=== PATIENT | male | born 1945 | race Caucasian/White ===

== ENCOUNTER 2018-05-02 07:58 | Emergency (ER) | payer OTHER, MEDICARE ==
--- NOTE | 2018-05-02 08:05 | EDPHY ---
H & P Time Seen by Provider: 05/02/18 08:05 HPI/ROS: CHIEF COMPLAINT: Atrial flutter HISTORY OF PRESENT ILLNESS: Patient is had 3 previous episodes of atrial flutter the 1st 1 in 2008, the 2nd in August of 2013, the 3rd in 2015. He was cardioverted in all 3 instances. He is not currently anticoagulated. He last ate or drank anything at 7:00 p.m. Last night. He was awake at 1:30 a.m. Because he does have some insomnia, and at 1:30 a.m. He started feeling his heart "jump around" identical to previous episodes of atrial flutter. Not associated with chest pain or shortness of breath or lightheadedness or dizziness or syncope. Symptoms mild. Persistent until now. REVIEW OF SYSTEMS: Eye: no change in vision ENT: no sore throat Cardiac: HPI Pulmonary: no cough or SOB Abdomen: no vomiting, diarrhea, abdominal pain Musculoskeletal: no back pain Skin: no rash Neuro: no headache Constitutional: no fever : no urinary symptoms No previous problems with tolerating anticoagulation A comprehensive 10 point review of systems is otherwise negative aside from elements mentioned in the history of present illness. 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 Eyes: No scleral icterus. ENT, Mouth: Normal mucous membranes. Respiratory: Normal respiratory effort, breath sounds equal, lungs are clear to auscultation. Cardiovascular: Irregular rate and rhythm. Gastrointestinal: Abdomen is soft and non tender. Neurological: Alert, face symmetric, normal motor and sensory in extremities. Skin: Warm and dry, no rashes. Musculoskeletal: No peripheral edema. Psychiatric: Not agitated. Emergency Department course/MDM: EKG shows atrial flutter with rate is controlled. [facility] is contacted for consultation. Does not have acute ischemic symptoms. 905: patient was personally seen by Dr. Nevarez in ED; he recommends Eliquis and discharge with elective cardioversion next Friday. Anticoagulation discussed with patient by Geri and consented, Rx by me. Smoking Status: Never smoked Constitutional: Initial Vital Signs Temperature (C) 36.4 C 05/02/18 08:00 Heart Rate 104 H 05/02/18 08:00 Respiratory Rate 18 05/02/18 08:00 Blood Pressure 126/87 H 05/02/18 08:00 O2 Sat (%) 95 05/02/18 08:00 O2 Delivery Mode Room Air Allergies/Adverse Reactions: No Known Allergies Allergy (Verified 05/02/18 07:59) Home Medications: Medication Instructions Recorded Apixaban [Eliquis] 5 mg PO BID #14 tab 05/02/18 Medical Decision Making - Diagnostics EKG Interpretation: 12-lead EKG interpreted by me; official reading is in computer system. My interpretation is atrial flutter rate 78 with PVC and left axis. Differential Diagnosis: Differential for palpitations considered including but not limited to atrial flutter, atrial fibrillation, PVCs, other dysrhythmia Consult/Admit Bed Type: Discussed with Geri chenm - Data Points Laboratory Results: Laboratory Results 05/02/18 08:15 05/02/18 08:15 05/02/18 05/02/18 08:15 08:15 WBC 6.50 10^3/uL 10^3/uL (3.80-9.50) RBC 5.07 10^6/uL 10^6/uL (4.40-6.38) Hgb 16.0 g/dL g/dL (13.7-17.5) Hct 48.2 % % (40.0-51.0) MCV 95.1 fL fL (81.5-99.8) MCH 31.6 pg pg (27.9-34.1) MCHC 33.2 g/dL g/dL (32.4-36.7) RDW 13.1 % % (11.5-15.2) Plt Count 158 10^3/uL 10^3/uL (150-400) MPV 13.1 fL H fL (8.7-11.7) Neut % (Auto) 78.6 % H % (39.3-74.2) Lymph % (Auto) 11.4 % L % (15.0-45.0) Alcorn % (Auto) 8.6 % % (4.5-13.0) Eos % (Auto) 0.6 % % (0.6-7.6) Baso % (Auto) 0.5 % % (0.3-1.7) Nucleat RBC Rel Count 0.0 % % (0.0-0.2) Absolute Neuts (auto) 5.11 10^3/uL 10^3/uL (1.70-6.50) Absolute Lymphs (auto) 0.74 10^3/uL L 10^3/uL (1.00-3.00) Absolute Monos (auto) 0.56 10^3/uL 10^3/uL (0.30-0.80) Absolute Eos (auto) 0.04 10^3/uL 10^3/uL (0.03-0.40) Absolute Basos (auto) 0.03 10^3/uL 10^3/uL (0.02-0.10) Absolute Nucleated RBC 0.00 10^3/uL 10^3/uL (0-0.01) Immature Gran % 0.3 % % (0.0-1.1) Immature Gran # 0.02 10^3/uL 10^3/uL (0.00-0.10) Sodium 143 mEq/L mEq/L (135-145) Potassium 4.1 mEq/L mEq/L (3.3-5.0) Chloride 109 mEq/L mEq/L (97-110) Carbon Dioxide 27 mEq/l mEq/l (22-31) Anion Gap 7 mEq/L mEq/L (6-14) BUN 21 mg/dL mg/dL (7-23) Creatinine 1.0 mg/dL mg/dL (0.7-1.3) Estimated GFR > 60 Glucose 133 mg/dL H mg/dL (70-100) Calcium 9.0 mg/dL mg/dL (8.5-10.4) Troponin I < 0.012 ng/mL ng/mL (0.000-0.034) Departure - Departure Disposition: Home, Routine, Self-Care Clinical Impression: Atrial flutter Qualifiers: Atrial flutter type: unspecified Qualified Code(s): I48.92 - Unspecified atrial flutter Condition: Good Instructions: Apixaban (By mouth), Atrial Flutter (ED) Additional Instructions: Dr. Nevarez will call you today to discuss details of DONIS cardioversion on Friday. Referrals: Jamel Gonzalez MD [Primary Care Provider] - As per Instructions Jersey Nevarez MD [Medical Doctor] - As per Instructions Prescriptions: Apixaban [Eliquis] 5 mg PO BID #14 tab
--- NOTE | 2018-05-02 08:23 | CPEKG ---
Test Reason : OPEN Blood Pressure : / mmHG Vent. Rate : 078 BPM Atrial Rate : 224 BPM P-R Int : 197 ms QRS Dur : 104 ms QT Int : 468 ms P-R-T Axes : 238 -78 028 degrees QTc Int : 534 ms Atrial flutter with predominant 3:1 AV block Ventricular premature complex Left axis deviation Prolonged QT interval Confirmed by Cecilio Garcia ([id number]) on 05/02/2018 8:22:46 AM Referred By: Confirmed By:Cecilio Garcia
[2018-05-02 08:42] LABS: PLATELET COUNT 158 10^3/uL (150-400)
[2018-05-02 09:17] VITALS: BP 118/76
--- NOTE | 2018-05-02 10:03 | PDCONSULT ---
Radio Interference Expert Note: I was asked to see Dr. Judson Torres in the emergency department by Dr. Cecilio Garcia. Patient is known to me from prior outpatient clinic visit. He has a history of recurrent atrial flutter. Early this morning he was awake and noticed that his heart rate was irregular. He came to the emergency department and was noted to be in atrial flutter with a controlled ventricular response. He denies any chest discomfort, shortness of breath at rest, dizziness or syncope. Except for palpitations, he feels that he is at baseline. 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 He is mildly symptomatic. He is hemodynamically stable. I have given him prescription for Eliquis 5 mg twice daily to be started this morning. Chads Vasc score is 2, given recurrent atrial flutter, he should continue Eliquis long-term. We plan on performing DONIS guided cardioversion Friday at 8:00 a.m.. If he feels worse in the interim, he will call me, I am on-call. This is his 5th episode of atrial flutter, we will again discuss radiofrequency ablation procedure with him if he wants to proceed. This was a complex discussion with the patient due to need for review of records , discussion of pathophysiology of disease and discussion regarding multiple treatment modalities. I spent 35 minutes with the patient, more than 50% of which was spent in counseling.
== END 2018-05-02 09:16 | disposition home or self-care (01) ==
DX: I48.92 Unspecified atrial flutter (principal); C61 Malignant neoplasm of prostate

== ENCOUNTER 2018-05-04 06:57 | Day surgery (SDC) | payer OTHER, MEDICARE ==
[2018-05-04] MEDS ORDERED: MIDAZOLAM 2 MG/2 ML VIAL IVP ONE (07:03)
[2018-05-04] MEDS ORDERED: NS 500 ML IV ONE (07:03)
[2018-05-04] MEDS ORDERED: ATROPINE SULFATE 1 MG/10 ML SYR IVP ONE (07:03)
[2018-05-04] MEDS ORDERED: fentaNYL 100 MCG/2 ML INJ IVP ONE (07:03)
[2018-05-04] MEDS ORDERED: BENZOCAINE UNIT DOSE SPRAY HURRICAINE MM ONE (07:03)
[2018-05-04 07:48] LABS: INR 1.14 (0.83-1.16); PROTIME(PATIENT) 14.8 SEC (12.0-15.0)
--- NOTE | 2018-05-04 07:59 | PDGENHP ---
History & Physical Chief Complaint: afl History of Present Illness: palp Relevant Physical Exam: s1s2 irreg cta ao3 Cardiorespiratory Assessment: afl for olaf cv
[2018-05-04] MEDS ORDERED: PROPOFOL 200 MG/20 ML VIAL ONE (08:03)
--- NOTE | 2018-05-04 08:15 | PDTEE1 ---
DONIS Cardioversion Procedure Procedure: electrical cardioversion, transesophageal echo Indications: other (atrial flutter) Consent: signed and in chart Anticoagulation: eliquis Procedural Details: Pads were placed in anterior-posterior position. DONIS probe was advanced and standard images obtained. There is no evidence of left atrial or left atrial appendage thrombus. Synchronized cardioversion attempt #1: 100J Results: normal sinus rhythm Conclusions: successful DONIS cardioversion Patient Problems: Problems Problem Status Onset Atrial flutter Acute
--- NOTE | 2018-05-04 08:30 | PDANEPAE ---
ANE History of Present Illness a flutter ANE Past Medical History - Cardiovascular History Hx Hypertension: No Hx Arrhythmias: Yes Hx Chest Pain: No Hx Coronary Artery / Peripheral Vascular Disease: No Hx CHF / Valvular Disease: No Hx Palpitations: No - Pulmonary History Hx COPD: No Hx Asthma/Reactive Airway Disease: No Hx Recent Upper Respiratory Infection: No Hx Oxygen in Use at Home: No Hx Sleep Apnea: No - Endocrine History Hx Diabetes: No ANE Review of Systems Review of systems is: negative Review of Systems: - Exercise capacity Exercise capacity: >=4 METS ANE Patient History - Allergies Allergies/Adverse Reactions: No Known Allergies Allergy (Verified 05/02/18 07:59) - Home Medications Home medications: home medication list seen and reviewed - Anes Hx Anes Hx: no prior problems - Smoking Hx Smoking Status: Never smoked ANE Labs/Vital Signs - Labs Result Diagrams: 05/04/18 07:20 ANE Physical Exam - Airway Neck exam: FROM Mallampati Score: Class 1 Mouth exam: normal dental/mouth exam - Pulmonary Pulmonary: no respiratory distress - Cardiovascular Cardiovascular: irregularly irregular - ASA Status ASA Status: II ANE Anesthesia Plan Anesthesia Plan: GA with mask Urgent/Emergent Case: Carlos bernal completed preop but documented later for safe timely pt care
--- NOTE | 2018-05-04 08:30 | POSTANESTH ---
Post Anesthetic Evaluation Cardiovascular Status: Normal, Stable Respiratory Status: Normal, Stable Level of Consciousness/Mental Status: Can Participate in Eval, Alert and Oriented Pain Control: Adequate, Prn Tx Ordered Nausea/Vomiting Control: Adequate, Prn Tx Ordered Complications Possibly Related to Anesthesia: None Noted
--- NOTE | 2018-05-04 16:39 | CPEKG ---
Test Reason : OPEN Blood Pressure : / mmHG Vent. Rate : 107 BPM Atrial Rate : 116 BPM P-R Int : 000 ms QRS Dur : 107 ms QT Int : 317 ms P-R-T Axes : 000 043 -04 degrees QTc Int : 423 ms Atrial flutter Ventricular premature complex Inferior infarct, recent Lateral leads are also involved Confirmed by Gaston Burk ([id number]) on 05/04/2018 4:39:07 PM Referred By: Confirmed By:Gaston Burk
--- NOTE | 2018-05-04 16:40 | CPEKG ---
Test Reason : OPEN Blood Pressure : / mmHG Vent. Rate : 064 BPM Atrial Rate : 061 BPM P-R Int : 150 ms QRS Dur : 107 ms QT Int : 401 ms P-R-T Axes : 071 015 057 degrees QTc Int : 414 ms Sinus rhythm Low voltage, extremity leads Confirmed by Gaston Burk ([id number]) on 05/04/2018 4:40:18 PM Referred By: Confirmed By:Gaston Burk
== END 2018-05-04 09:45 | disposition home or self-care (01) ==
LOC: FCATH 06:57
PROVIDERS: ATTEND Internal Medicine Cardiovascular Disease
DX: I48.92 Unspecified atrial flutter (principal); Z79.01 Long term (current) use of anticoagulants
CPT/HCPCS: J2704

== ENCOUNTER 2018-08-14 15:14 | Day surgery (SDC) | payer OTHER, MEDICARE ==
[2018-08-14] MEDS ORDERED: fentaNYL 100 MCG/2 ML INJ IVP ONE (15:16)
[2018-08-14] MEDS ORDERED: ATROPINE SULFATE 1 MG/10 ML SYR IVP ONE (15:16)
[2018-08-14] MEDS ORDERED: BENZOCAINE UNIT DOSE SPRAY HURRICAINE MM ONE (15:16)
[2018-08-14] MEDS ORDERED: MIDAZOLAM 2 MG/2 ML VIAL IVP ONE (15:16)
[2018-08-14] MEDS ORDERED: NS 500 ML IV ONE (15:16)
[2018-08-14 16:14] LABS: INR 1.14 (0.83-1.16); PROTIME(PATIENT) 14.1 SEC (12.0-15.0)
[2018-08-14] MEDS ORDERED: LIDOCAINE 1% 5 ML SDV ONE (16:36)
[2018-08-14] MEDS ORDERED: PROPOFOL 200 MG/20 ML VIAL ONE ×2 (16:36→16:37)
--- NOTE | 2018-08-14 16:36 | PDANEPAE ---
ANE History of Present Illness A-flutter ANE Past Medical History - Cardiovascular History Hx Hypertension: No Hx Arrhythmias: Yes Hx Chest Pain: No Hx Coronary Artery / Peripheral Vascular Disease: No Hx CHF / Valvular Disease: No Hx Palpitations: No - Pulmonary History Hx COPD: No Hx Asthma/Reactive Airway Disease: No Hx Recent Upper Respiratory Infection: No Hx Oxygen in Use at Home: No Hx Sleep Apnea: No - Endocrine History Hx Diabetes: No ANE Review of Systems Review of Systems: ANE Patient History - Allergies Allergies/Adverse Reactions: No Known Allergies Allergy (Verified 05/02/18 07:59) - Anes Hx Anes Hx: no prior problems - Smoking Hx Smoking Status: Never smoked ANE Labs/Vital Signs - Labs Result Diagrams: 08/14/18 15:45 - Vital Signs Height: 175 cm Weight: 70.3 kg ANE Physical Exam - Airway Neck exam: FROM Mallampati Score: Class 2 Mouth exam: normal dental/mouth exam - Pulmonary Pulmonary: no respiratory distress - Cardiovascular Cardiovascular: regular rate and rhythym - ASA Status ASA Status: II ANE Anesthesia Plan Anesthesia Plan: MAC (vs brief IV GA)
--- NOTE | 2018-08-14 17:02 | POSTANESTH ---
Post Anesthetic Evaluation Cardiovascular Status: Similar to Pre-Op Cond Respiratory Status: Similar to Pre-op Cond. Level of Consciousness/Mental Status: Alert and Oriented Pain Control: Adequate, Prn Tx Ordered Nausea/Vomiting Control: Adequate, Prn Tx Ordered Complications Possibly Related to Anesthesia: None Noted
--- NOTE | 2018-08-14 17:22 | EPPROC ---
Electrophysiology Procedure Note: Date: 08/14/18 Nurse Prn: Mike Hutchins MD Procedures: DONIS 35203 Cardioversion 30689 Indications: 73yo M with typical atrial flutter, recurrent since most recent cardioversion 05/2018. Has been off eliquis until this AM, when he experienced symptomatic recurrence. Techniques: Following informed consent, Dr Torres was brought to the EP lab in a fasting nonsedated state, in AFL rhythm. IV sedation was provided by the anesthesiology service. Pre-procedure DONIS demonstrated the absence of VINCENZO thrombus and adequate exit velocities; see separate report. Defibrillation pads were applied in an AP orientation to the chest. After ensuring adequate sedation , a single 200J biphasic synchronized transcutaneous shock was delivered, resulting in termination of AFL rhythm; there was a 3 second sinus pause, followed by sinus bradycardia rhythm (50s). The patient tolerated the procedure well. EBL: none Complications: none Plan: -eliquis 5mg bid for 1 month post cardioversion -discussed CTI ablation for definitive control of AFL Patient Problems: Problems Problem Status Onset Atrial flutter Acute
--- NOTE | 2018-08-14 18:26 | CPEKG ---
Test Reason : OPEN Blood Pressure : / mmHG Vent. Rate : 101 BPM Atrial Rate : 211 BPM P-R Int : 103 ms QRS Dur : 098 ms QT Int : 366 ms P-R-T Axes : 246 -53 025 degrees QTc Int : 475 ms Atrial flutter Left axis deviation Minimal ST depression, inferior leads Borderline prolonged QT interval Confirmed by Frandy Pond ([id number]) on 08/14/2018 6:25:52 PM Referred By: Abraham Hutchins Confirmed By:Frandy Pond
--- NOTE | 2018-08-14 18:27 | CPEKG ---
Test Reason : OPEN Blood Pressure : / mmHG Vent. Rate : 064 BPM Atrial Rate : 065 BPM P-R Int : 232 ms QRS Dur : 107 ms QT Int : 425 ms P-R-T Axes : 049 -10 032 degrees QTc Int : 439 ms Sinus rhythm Atrial premature complexes Prolonged SD interval Minimal ST elevation, anterior leads Confirmed by Frandy Pond ([id number]) on 08/14/2018 6:27:24 PM Referred By: Abraham Hutchins Confirmed By:Frandy Pond
== END 2018-08-14 18:00 | disposition home or self-care (01) ==
LOC: FCATH 15:14
PROVIDERS: ATTEND Internal Medicine Cardiovascular Disease
DX: I48.3 Typical atrial flutter (principal); Z85.46 Personal history of malignant neoplasm of prostate
CPT/HCPCS: J2704

== ENCOUNTER 2018-09-22 11:01 | Observation (INO) | payer OTHER, MEDICARE ==
[2018-09-22] MEDS ORDERED: NS 1,000 ML IV ONE (11:02)
[2018-09-22] MEDS ORDERED: PROPOFOL 200 MG/20 ML VIAL ONE (11:08)
[2018-09-22] MEDS ORDERED: ROCURONIUM 100 MG/10 ML VIAL ONE (11:08)
[2018-09-22] MEDS ORDERED: DEXAMETHASONE 4 MG/ML VIAL ONE (11:08)
[2018-09-22] MEDS ORDERED: ONDANSETRON 4 MG/2 ML VIAL ONE (11:08)
[2018-09-22] MEDS ORDERED: PHENYLEPHRINE HCL 100 MCG/ML SYR ONE ×3 (11:17→14:39)
[2018-09-22] MEDS ORDERED: LIDOCAINE 1% 300 MG/30 ML SDV ONE (11:54)
[2018-09-22 11:55] LABS: PLATELET COUNT 142 10^3/uL (150-400)
[2018-09-22] MEDS ORDERED: HEPARIN 10,000 UNIT/10 ML MDV (1,000 UNIT/ML) ONE (11:55)
[2018-09-22] MEDS ORDERED: ISOPROTERENOL HCL/D5W 0.2 MG/50 ML BAG IV ONE ×2 (11:55→14:36)
[2018-09-22] MEDS ORDERED: BUPIVACAINE 0.75% 10 ML SDV ONE (11:55)
[2018-09-22 12:00] LABS: INR 1.01 (0.83-1.16); PROTIME(PATIENT) 12.9 SEC (12.0-15.0)
--- NOTE | 2018-09-22 12:05 | PDGENHP ---
History & Physical Chief Complaint: Atrial flutter History of Present Illness: Persistent symptomatic atrial flutter. History of VINCENZO thrombus. On Eliquis, held x24hrs pre-procedure. Most recent cardioversion . Relevant Physical Exam: A&Ox4, no apparent distress, regular rate and rhythm, tachycardic (atrial flutter), S1, S2, pulses 2+ bilaterally, no edema Cardiorespiratory Assessment: Proceed with DONIS and atrial flutter ablation as planned for today
--- NOTE | 2018-09-22 12:51 | PDANEPAE ---
ANE Past Medical History - Cardiovascular History Hx Hypertension: No Hx Arrhythmias: Yes Hx Chest Pain: No Hx Coronary Artery / Peripheral Vascular Disease: No Hx CHF / Valvular Disease: No Hx Palpitations: No - Pulmonary History Hx COPD: No Hx Asthma/Reactive Airway Disease: No Hx Recent Upper Respiratory Infection: No Hx Oxygen in Use at Home: No Hx Sleep Apnea: No - Endocrine History Hx Diabetes: No - Renal History Hx Renal Disorders: No - Liver History Hx Hepatic Disorders: No - Neurological & Psychiatric Hx Hx Neurological and Psychiatric Disorders: No - Cancer History Hx Cancer: Yes Cancer History Comment: Prostate CA in remission - GI History GERD: no Hx Gastrointestinal Disorders: No ANE Review of Systems Review of Systems: ANE Patient History - Allergies Allergies/Adverse Reactions: No Known Allergies Allergy (Verified 05/02/18 07:59) - Smoking Hx Smoking Status: Never smoked ANE Labs/Vital Signs - Labs Result Diagrams: 09/22/18 11:15 09/22/18 11:15 - Vital Signs Height: 175.26 cm Weight: 70.307 kg ANE Physical Exam - Airway Neck exam: FROM Mallampati Score: Class 1 Mouth exam: normal dental/mouth exam - Pulmonary Pulmonary: no respiratory distress, no rales or rhonchi, clear to auscultation - Cardiovascular Cardiovascular: no murmur, rub, or gallop, irregularly irregular - ASA Status ASA Status: II ANE Anesthesia Plan Anesthesia Plan: general endotracheal anesthesia Total IV Anesthesia: No
--- NOTE | 2018-09-22 12:52 | POSTANESTH ---
Post Anesthetic Evaluation Cardiovascular Status: Normal, Stable Respiratory Status: Normal, Stable Level of Consciousness/Mental Status: Can Participate in Eval Pain Control: Adequate, Prn Tx Ordered Nausea/Vomiting Control: Adequate, Prn Tx Ordered Complications Possibly Related to Anesthesia: None Noted
[2018-09-22] MEDS ORDERED: PROPOFOL/EMULSION 500 MG/50 ML BOTTLE IV ONE (13:48)
[2018-09-22] MEDS ORDERED: LIDOCAINE 2% 2 ML INJ ONE (13:48)
[2018-09-22] MEDS ORDERED: fentaNYL 100 MCG/2 ML INJ ONE (14:08)
[2018-09-22] MEDS ORDERED: ROCURONIUM 50 MG/5 ML VIAL ONE (14:18)
[2018-09-22] MEDS ORDERED: ePHEDrine SULFATE 25 MG/5 ML SYR ONE (14:39)
[2018-09-22] MEDS ORDERED: SUGAMMADEX SODIUM 200 MG/2 ML VIAL IVP ONE ×2 (15:18→15:21)
[2018-09-22] MEDS ORDERED: ACETAMINOPHEN 325 MG TAB PO PRN (15:48)
--- NOTE | 2018-09-22 15:51 | EPPROC ---
Electrophysiology Procedure Note: ELECTROPHYSIOLOGIC STUDY AND CATHETER MEDIATED ABLATION FOR SUBEUSTACHIAN ISTHMUS DEPENDENT COUNTERCLOCKWISE ATRIAL FLUTTER: INDICATION: Recurrent atrial flutter PROCEDURES PERFORMED: 18060-28 EP evaluation with RA/RV/LA pace/record, with arrhythmia induction 11312-42 EP evaluation with RA/RV pace record, insert/reposition catheter, with arrhythmia induction 41218 SVT ablation 14239 3D mapping Fluoroscopy Catheters & Anesthesia: The patient arrived in the Electrophysiology Laboratory in the fasting state. The right clavicular region, right groin, and left groin area were prepped and draped in the usual sterile manner. Anesthesiologist administered general anesthesia. Appropriate non-invasive blood pressure, pulse oximetry and end- tidal CO2 monitoring was established. All catheters were placed percutaneously using the modified Seldinger technique , and advanced into position under fluoroscopic guidance. One #7 Divehi deflectable octapolar electrode catheter was advanced to the His-bundle position via the left femoral vein and then into the coronary sinus. One # 7 Divehi Halo catheter was inserted through the left femoral vein and was placed at the tricuspid annulus. Heparin was administered to keep ACT > 200 seconds. Programmed stimulation was performed from the right atrium, coronary sinus ( left atrium) and right ventricle. On arrival to the Electrophysiology Laboratory the patient was in atrial flutter , CL 280 ms . Entrainment mapping from lateral TA, septal TA, proximal CS and distal CS confirmed cavotricuspid isthmus dependent atrial flutter. In preparation for ablation of typical atrial flutter, a high-resolution 3D (3 dimensional) Carto electroanatomical map of the sub-Eustachian isthmus and right atrium was obtained during pacing of the posterolateral coronary sinus. For ablation of typical atrial flutter, one Mobi sheath was placed in the right atrium. A #8 Divehi deflectable quadrapolar electrode catheter (2mm-5mm-2mm spacing) with 3.5 mm STSF irrigated tip electrode and location sensor for the [employer] mapping system was inserted in the long sheath and advanced to the right atrium. Radiofrequency applications were applied between the tricuspid annulus at 0630 oclock as seen in the MIRIAN view and the inferior vena cava. This achieved conduction block across the isthmus. Post ablation, a high-resolution electroanatomical map of the sub-Eustachian isthmus was obtained during pacing of the posterolateral coronary sinus. This confirmed conduction block across the sub-Eustachian isthmus. Bidirectional block was also confirmed by pacing. Atrial programmed stimulation post ablation (isoproterenol 4 mcg/min) induced 2 atrial tachycardias: 1. AT#1, CL 430-45- ms. This was a high septal devonte AT, sustained but not enough 3D mapping data could be obtained to perform ablation. 2. AT#2, CL 360 ms, nonsustained, 1 episode. Early activation was in proximal CS AT vs atypical AVNRT. The catheters were removed. Sheaths were removed in EP Lab post subQ purse string sutures. The patient was transferred to the cardiovascular holding area in stable condition. Vascular access sheaths were removed in the holding area. There were no apparent complications. CONCLUSIONS: 1. Cavotricuspid isthmus dependent counterclockwise atrial flutter. 2. Successful catheter mediated ablation of cavotricuspid isthmus achieving bi -directional conduction block across cavotricuspid isthmus. 3. 2 separate AT induced, not targeted for ablation. 4. No apparent complications. Patient Problems: Problems Problem Status Onset Atrial flutter Acute
[2018-09-22] MEDS: APIXABAN 5 MG TAB PO SCH (20:00)
[2018-09-23 04:53] LABS: PLATELET COUNT 130 10^3/uL (150-400)
[2018-09-23 07:49] VITALS: BP 114/71
[2018-09-23] MEDS: APIXABAN 5 MG TAB PO SCH (09:09)
--- NOTE | 2018-09-23 11:27 | GDS ---
[f rep st] DISCHARGE SUMMARY SUPERVISING ATG JAVA DEVELOPER: Jersey Nevarez MD ADMISSION DIAGNOSIS: Atrial flutter. DISCHARGE DIAGNOSES: 1. Atrial flutter, status post successful ablation of the cavotricuspid isthmus. 2. Two separate inducible atrial tachycardias, not targeted for ablation. PROCEDURES PERFORMED DURING HOSPITALIZATION: 1. Electrocardiogram. 2. Electrophysiology study. 3. Atrial flutter ablation. 4. Echocardiogram. HOSPITAL COURSE: Patient presented 09/22/2018, for an atrial flutter ablation in the setting of recurrent, symptomatic episodes of atrial flutter requiring several recent cardioversions. He underwent successful catheter-mediated ablation of the cavotricuspid isthmus achieving bidirectional conduction block across the CTI. He also had 2 separate inducible atrial tachycardias, which were not targeted for ablation. He did very well and had no intraprocedure complications. He has been stable overnight and he is appropriate and stable for discharge home today. PHYSICAL EXAMINATION: GENERAL: Alert and oriented x4 in no apparent distress. VITAL SIGNS: Blood pressure 111/41, heart rate 62, respiratory rate 16, SpO2 97% on room air, temp 36.4 degrees Celsius. RESPIRATORY: Lungs are clear to auscultation without adventitious breath sounds. CARDIAC: Regular rate and rhythm, S1, S2. Rhythm is regular. ABDOMEN: Normoactive bowel sounds times all 4 quadrants. No masses or tenderness. Soft to palpation. SKIN: [place], warm, dry without cyanosis or clubbing. No peripheral edema. EXTREMITIES: Bilateral pursestring sutures are removed intact without evidence of hematoma, redness, oozing, swelling, or warmth. Pulses are 2+ bilaterally. No edema. LABORATORY STUDIES: Drawn today. CBC and BMP are stable compared to preprocedure. Troponin is 0.509, please note the elevated troponin is to be expected in the postprocedure setting. PROCEDURES: Electrophysiology study and atrial flutter ablation as mentioned above. Preliminary review of echocardiogram this morning demonstrates stable left ventricular systolic function without new wall motion abnormalities or evidence of pericardial effusion. There was mild MR, AI, and TR. Electrocardiogram this morning demonstrates sinus bradycardia with a normal MN interval and without new ST or T-wave abnormalities. DISCHARGE DISPOSITION: Patient will be discharged home in stable condition. He is under activity restrictions as below. DISCHARGE MEDICATIONS: Please see discharge medication reconciliation sheet for full details. Please note, the patient has been restarted on his Eliquis 6 hours post procedure and he will continue this for at least the next 6 weeks. DISCHARGE INSTRUCTIONS: Post atrial flutter ablation instructions reviewed with the patient in detail. 1. We discussed activity restrictions, including lifting no more than 10 pounds and avoidance of submerged bathing for 10 days. 2. He will get up and walk around every 45 minutes for 45 days. 3. We reviewed bleeding precautions, medication compliance, monitoring for signs and symptoms of infection, and monitoring for sustained arrhythmia. At the time of discharge, the patient verbalizes understanding regarding all discharge instructions without questions or concerns. He has a followup visit scheduled in 4 weeks, and he will contact [facility] with any new or concerning symptoms prior to his upcoming visit. Time spent on discharge greater than 30 minutes. /[id number]/MODL MTDD
--- NOTE | 2018-09-23 14:29 | ASDISCHSUM ---
Discharge Information Plan Status:Home with No Needs Medically Cleared to Leave:09/23/2018 Discharge Date:09/23/2018 11:22 AM CM D/C Disposition:Home, Routine, Self-Care ADT D/C Disposition:Home, Routine, Self-Care Projected Discharge Date:09/23/2018 11:22 AM Transportation at D/C: Discharge Delay Reason: Follow-Up Date:09/23/2018 11:22 AM Discharge Slot: Final Diagnosis: Placement Information Patient Contact Information Contact Name:JUSTYN Relationship:Friend Address: City:[place] Alternate Phone: [facility]/Zip Code:[place] [address] Email: Financial Information Financial Class:Medicare Primary Plan Desc:MEDICARE OUTPATIENT Primary Plan Number:[id number] Secondary Plan Desc:ROBB/FARIDA SUPPLEMENT Secondary Plan Number:[id number] Assessment Information LACE LACE Length of stay for Answers: Less than 1 day current admission Acuity / Level of Answers: No Care: Did the patient have an inpatient admission? Comorbidities - select Answers: Other Notes: Jean/Sanju all that apply # of Emergency department Answers: 1-2 visits in the last 6 months Score: 2 Date Signed: 09/23/2018 02:28 PM Electronically Signed By:Madeline Choe RN Intervention Information
--- NOTE | 2018-09-23 14:40 | ECHO ---
[email or web address] [address] [address] Main: [phone] Echocardiography Examination Transthoracic Name: TRUMAN DOWELL MR#: [id number] Study Date: 09/23/2018 Study Time: 07:57 AM Date of : 1945 Age: 73 year(s) Height: 175.3 cm (69 in.) Weight: 70.31 kg (155 lb.) BSA: 1.85 m2 Gender: Male Examination: Echo Contrast: Image Quality: Adequate Rhythm: Heart Rate: BP: 114 mmHg/71 mmHg Indication: F/U Post EP Study Procedure Staff Referring Physician: Supervisor Files: Roya Anderson [facility] Reading Physician: Nitza Jin MD Requesting Provider: Ordering Physician: Luann Villalba Indication: F/U Post EP Study Measurements Chambers AV/MV Label Value Normal Value Label Value Normal Value LVOTd 2.2 cm (1.9cm - 2.1cm) AR PHT 0.61 s LVOT VTI 20.8 cm (18cm - 22cm) AR PHT 608 ms LVDd, 2D 4.9 cm (4.2cm - 5.9cm) AR Vmax 3.75 m/s LVDs, 2D 3.1 cm (2.1cm - 4cm) AV PGmax 4 mmHg IVSd, 2D 1.1 cm (0.6cm - 1.1cm) AV PGmean 2 mmHg LVPWd, 2D 0.9 cm (0.6cm - 1cm) AV Vmax 0.98 m/s LVEF, BP 61 % (55% - 70%) ROBIN (VTI) 3.3 cm2 LVEF, 2D 65 % (54% - 74%) MV E Vmax 0.63 m/s LVOT PGmean 2 mmHg MV A Vmax 0.43 m/s LVOT Vmean 0.58 m/s MV E/A 1.47 LA Volume, BP 67 ml (18ml - 58ml) MV E/E' lateral 6 LADs, 2D 3.5 cm (3cm - 4cm) MV E/E' septal 7.1 (0.45 - 1.25) LAESV index, BP 36.2 ml/m2 MV DT 162 ms RA Area 25.5 cm2 MV E' septal 0.09 m/s Additional Vessels MV PHT 0.05 s Label Value Normal Value MVA PHT 4.7 cm2 AoAsc 3.5 cm MV E' lateral 0.1 m/s AoRoot, 2D 3.3 cm (1.4cm - 2.6cm) MV E/E' mean 6.63 IVC 1.7 cm (1.2cm - 2.3cm) MV PHT 47 ms Patient: TRUMAN DOWELL Study Date: 09/23/2018 Page 1 of 3 07:57 AM MV E' mean 0.1 m/s TV/PV Label Value Normal Value RA Pressure 5 mmHg RVSP 34 mmHg TR Pmax 29 mmHg TR Vmax 2.67 m/s PV PGmax 6 mmHg PV Vmax, Caliper 1.25 m/s (0.6m/s - 0.9m/s) Findings 1. The left ventricle is normal in size. Normal LV systolic function with an ejection fraction of 61%. No regional wall motion abnormalities. Normal diastolic function.2. The right ventricle is upper limits of normal in size with normal systolic function.3. Mild left atrial dilation and moderate right atrial dilation4. Mild mitral regurgitation.5. Mild aortic regurgitation.6. Mild tricuspid regurgitation with normal estimated PA systolic pressure. compared with 08/14/2018 DONIS mild mitral regurgitation now noted, previously trivial.. Left Ventricle: Left ventricle is normal in size. Normal global systolic left ventricular function. The ejection fraction, measured by Simpsons method, is 61 %. EF range is estimated at 60 % - 65 %. Left ventricle wall thickness is normal. There are no regional wall motion abnormalities. Left ventricular diastolic function parameters are normal. No LV hypertrophy. Right Ventricle: Upper normal size right ventricle. Right ventricular systolic function is normal. Left Atrium: The left atrium is mildly dilated. Right Atrium: The right atrium is moderately dilated. Mitral Valve: Mitral valve appears structurally normal. Mild mitral regurgitation. No mitral valve stenosis. Aortic Valve: Aortic leaflets are structurally normal. Mild aortic regurgitation is present. There is no aortic stenosis. Tricuspid Valve: Tricuspid valve leaflets are structurally normal. Mild tricuspid regurgitation. No tricuspid valve stenosis. Right Ventricular systolic pressure is measured at 34 mmHg. Pulmonary artery pressure normal. Pulmonic Valve: Pulmonic leaflets are structurally normal. Aorta: The aortic root size in 2D measures 3.3 cm. The ascending aorta measures 3.5 cm. Aorta Measurements AoRoot, 2D is 3.3 cm. IVC: The inferior vena cava is normal in size. Pericardium: No pericardial effusion. Exam Details Procedure Ordered: Echo Procedure Components: Complete 2D imaging, Complete spectral Doppler, Color Doppler Procedure Status: Routine study Image Quality: Adequate Facility Location: Bedside (No Signature Object) Patient: TRUMAN DOWELL Study Date: 09/23/2018 Page 2 of 3 07:57 AM Patient: TRUMAN DOWELL Study Date: 09/23/2018 Page 3 of 3 07:57 AM [id number]
--- NOTE | 2018-09-24 10:21 | CPEKG ---
Test Reason : OPEN Blood Pressure : / mmHG Vent. Rate : 083 BPM Atrial Rate : 078 BPM P-R Int : 210 ms QRS Dur : 150 ms QT Int : 435 ms P-R-T Axes : 227 -81 -31 degrees QTc Int : 512 ms atrial tachycarida vs atrial flutter Nonspecific IVCD with LAD Confirmed by Marcelo Dunham ([id number]) on 09/24/2018 10:21:44 AM Referred By: Jamel Gonzalez Confirmed By:Marcelo Dunham
--- NOTE | 2018-09-24 10:24 | CPEKG ---
Test Reason : OPEN Blood Pressure : / mmHG Vent. Rate : 071 BPM Atrial Rate : 071 BPM P-R Int : 191 ms QRS Dur : 112 ms QT Int : 417 ms P-R-T Axes : 083 066 056 degrees QTc Int : 454 ms Sinus rhythm Confirmed by Marcelo Dunham ([id number]) on 09/24/2018 10:23:47 AM Referred By: Jamel Gonzalez Confirmed By:Marcelo Dunham
--- NOTE | 2018-09-24 10:25 | CPEKG ---
Test Reason : OPEN Blood Pressure : / mmHG Vent. Rate : 058 BPM Atrial Rate : 056 BPM P-R Int : 142 ms QRS Dur : 112 ms QT Int : 444 ms P-R-T Axes : 068 048 048 degrees QTc Int : 437 ms Sinus rhythm Confirmed by Marcelo Dunham ([id number]) on 09/24/2018 10:24:56 AM Referred By: Jamel Gonzalez Confirmed By:Marcelo Dunham
== END 2018-09-23 11:22 | disposition home or self-care (01) ==
LOC: FCATH 11:01 → F2W 15:48
PROVIDERS: ADMIT Registered Nurse; ATTEND Internal Medicine Cardiovascular Disease
PROC: 02583ZZ Destruction of Conduction Mechanism, Percutaneous Approach (ICD-10-PCS; principal; 2018-09-22)
PROC: 4A023FZ Measurement of Cardiac Rhythm, Percutaneous Approach (ICD-10-PCS; principal; 2018-09-22)
DX: I48.92 Unspecified atrial flutter (principal); Z79.01 Long term (current) use of anticoagulants; Z85.46 Personal history of malignant neoplasm of prostate
CPT/HCPCS: 93005; 93306; 93312; 93613; 93621; 93623; 93653; C1731; C1732; C1766; J1100; J1644; J2370; J2405; J2704; J3010